=== PATIENT | male | born 1995 | race Caucasian/White ===

== ENCOUNTER 2020-12-21 18:04 | Emergency (ER) | payer MEDICAID, OTHER ==
[~2020-12-21] VITALS: Ht 180.3 cm; Wt 138.6 kg
--- OUTSIDE RECORDS SUMMARY | 2020-12-21 20:02 | CCD ---
Author Author [facility] Organization [facility] Address Unknown Phone Unavailable Support Name Relationship Address Phone [employer] [place] [address] ENOCH BAH Next Of Kin Unknown [employer] MARKET Next Of Kin [address] [place] [address] DERIAN [place] [address] Edgar OVIEDO Next Of [address] [place] [address] - Re-disclosure Warning The records that you are about to access may contain information from federally-assisted alcohol or drug abuse programs. If such information is present, then the following federally mandated warning applies: This information has been disclosed to you from records protected by federal confidentiality rules (42 CFR part 2). The federal rules prohibit you from making any further disclosure of this information unless further disclosure is expressly permitted by the written consent of the person to whom it pertains or as otherwise permitted by 42 CFR part 2. A general authorization for the release of medical or other information is NOT sufficient for this purpose. The Federal rules restrict any use of the information to criminally investigate or prosecute any alcohol or drug abuse patient.The records that you are about to access may contain highly sensitive health information, the redisclosure of which is protected by Article 27-F of the [facility] Public Health law. If you continue you may have access to information: Regarding HIV / AIDS; Provided by facilities licensed or operated by the [facility] Office of Mental Health; or Provided by the [facility] Office for People With Developmental Disabilities. If such information is present, then the following [facility] mandated warning applies: This information has been disclosed to you from confidential records which are protected by state law. State law prohibits you from making any further disclosure of this information without the specific written consent of the person to whom it pertains, or as otherwise permitted by law. Any unauthorized further disclosure in violation of state law may result in a fine or assisted sentence or both. A general authorization for the release of medical or other information is NOT sufficient authorization for further disc losure. Insurance Providers Payer name Policy type / Coverage type Policy ID Covered democrat ID Covered democrat's relationship to stanford Policy Stanford Plan Information NANDO [id number] SP [id number] EMEDMT [id number] MEDICA[place] [id number] [facility] [id number]
[2020-12-21 20:31] VITALS: BP 139/97
[2020-12-22] MEDS ORDERED: LEXA1TAB PO (11:22)
[2020-12-22] MEDS ORDERED: PT COMMENT (11:30)
== END 2020-12-21 20:36 | disposition home or self-care (01) ==
LOC: M ED 18:04
DX: Z04.6 Encounter for general psychiatric examination, requested by authority (principal); F31.9 Bipolar disorder, unspecified; Z79.899 Other long term (current) drug therapy

== ENCOUNTER 2020-12-22 10:50 | Inpatient (IN) | payer OTHER ==
[~2020-12-22] VITALS: Ht 185.4 cm; Wt 133.4 kg
--- OUTSIDE RECORDS SUMMARY | 2020-12-22 11:03 | CCD ---
Author Author [facility] Organization [facility] Address Unknown Phone Unavailable Support Name Relationship Address Phone [employer] [place] [address] ENOCH BAH Next Of Kin Unknown [employer] MARKET Next Of Kin [address] [place] [address] DERIAN J[place] [address] Edgar OVIEDO Next Of Kin [address] [place] [address] - Re-disclosure Warning The records that you [...] is protected by Article 27-F of the [facility] Public Health law. If you continue you may have access to information: Regarding HIV / AIDS; Provided by facilities licensed or operated by the [facility] Office of Mental Health; or Provided by the [facility] Office for People With Developmental Disabilities. If such information is present, then the following [facility] mandated warning applies: This information has been [...] law may result in a fine or fdc sentence or both. A general authorization for the release of medical or other information is NOT sufficient authorization for further disc losure. Insurance Providers Payer name Policy type / Coverage type Policy ID Covered alliance party ID Covered alliance party's relationship to stanford Policy Stanford Plan Information NANDO [id number] 200 [facility] [id number] EMEDMI [id number] [place] [id number] [facility] [id number]
[2020-12-22] MEDS ORDERED: LORazepam 2 MG TAB PO STA (11:13)
[2020-12-22 11:19] LABS: HEMATOCRIT 43.2 % (42.0-52.0); MEAN CORPUSCULAR HGB CONC 32.4 g/dl (32.0-36.5); MEAN CORPUSCULAR VOLUME 77.3 fl (80.0-96.0); PLATELET COUNT, AUTOMATED 275 10^3/uL (150-450); RED BLOOD COUNT 5.59 10^6/uL (4.30-6.10)
[2020-12-22] MEDS ORDERED: LEXA1TAB PO (11:22)
[2020-12-22] MEDS ORDERED: PT COMMENT (11:30)
[2020-12-22 11:58] LABS: ACETAMINOPHEN LEVEL < 2.0 UG/ML (10.0-30.0); ALBUMIN 4.8 GM/DL (3.2-5.2); ALT/SGPT 37 U/L (12-78); BILIRUBIN,DIRECT 0.1 MG/DL (0.0-0.2); BILIRUBIN,TOTAL 0.5 MG/DL (0.2-1.0); BLOOD UREA NITROGEN 23 MG/DL (7-18); CALCIUM LEVEL 9.9 MG/DL (8.5-10.1); CARBON DIOXIDE LEVEL 22 MEQ/L (21-32); CHLORIDE LEVEL 105 MEQ/L (98-107); CREATININE FOR GFR 0.85 MG/DL (0.70-1.30); ETHYL ALCOHOL (ETHANOL) < 0.003 % (0.000-0.010); GLOMERULAR FILTRATION RATE > 60.0 (>60); GLUCOSE, FASTING 135 MG/DL (70-100); POTASSIUM SERUM 3.4 MEQ/L (3.5-5.1); SALICYLATE LEVEL < 1.7 MG/DL (5.0-30.0); SODIUM LEVEL 139 MEQ/L (136-145); THYROID STIMULATING HORMONE 0.516 uIU/ML (0.358-3.740)
--- OUTSIDE RECORDS SUMMARY | 2020-12-22 12:09 | CCD ---
Author Author [facility] Organization [facility] Address Unknown Phone Unavailable Support Name Relationship Address Phone [employer] Next Of Kin [address] [place], [place] [id number] ENOCH BAH Next Of Kin Unknown [employer]ET Next Of Kin [address] [place] [address] DERIAN JENSEN [place] [address] Edgar OVIEDO Next Of Kin [address] [place] [address] - Re-disclosure Warning The records that you [...] is protected by Article 27-F of the [facility] Public Health law. If you continue you may have access to information: Regarding HIV / AIDS; Provided by facilities licensed or operated by the [facility] Office of Mental Health; or Provided by the [facility] Office for People With Developmental Disabilities. If such information is present, then the following [facility] mandated warning applies: This information has [...] law may result in a fine or fpc sentence or both. A general authorization for the release of medical or other information is NOT sufficient authorization for further disc losure. Insurance Providers Payer name Policy type / Coverage type Policy ID Covered libertarian ID Covered libertarian's relationship to stanford Policy Stanford Plan Information [facility] [id number] 200 [facility] [id number] EMEDMI [id number] [place] - [place] [id number] [facility] [id number]
[2020-12-22 13:59] LABS: AMPHETAMINES LEVEL URINE NEGATIVE (NEGATIVE); BARBITURATES URINE NEGATIVE (NEGATIVE); BENZODIAZEPINES URINE NEGATIVE (NEGATIVE); CANNABINOIDS URINE POSITIVE (NEGATIVE); COCAINE METABOLITE URINE NEGATIVE (NEGATIVE); METHADONE URINE NEGATIVE (NEGATIVE); OPIATES URINE NEGATIVE (NEGATIVE); PHENCYCLIDINE URINE NEGATIVE (NEGATIVE)
[2020-12-22 14:13] LABS: RSV AMPLIFICATION NEGATIVE (NEGATIVE)
[2020-12-22] MEDS ORDERED: MAALOX 30 ML SUSP *UDC PO PRN (16:15)
[2020-12-22] MEDS ORDERED: MOM 30ML SUSPENSION UDC PO PRN (16:15)
[2020-12-22] MEDS ORDERED: ACETAMINOPHEN TAB 650MG DOSE (2X325MG) PO PRN (16:15)
--- OUTSIDE RECORDS SUMMARY | 2020-12-22 16:51 | CCD ---
Author Author [facility] Organization [facility] Address Unknown Phone Unavailable Support Name Relationship Address Phone [employer] Next Of Kin [address] [place], [place] [phone] ENOCH BAH Next Of Kin Unknown [employer] MARKET Next Of Kin [address] [place] [address] DERIAN JENS[place] [address] Edgar OVIEDO Next Of Kin [address] [place] [address] - Re-disclosure Warning The records that you [...] is protected by Article 27-F of the [facility] Public Health law. If you continue you may have access to information: Regarding HIV / AIDS; Provided by facilities licensed or operated by the [facility] Office of Mental Health; or Provided by the [facility] Office for People With Developmental Disabilities. If such information is present, then the following [facility] mandated warning applies: This information has [...] law may result in a fine or [place] [facility] sentence or both. A general authorization for the release of medical or other information is NOT sufficient authorization for further disc losure. Insurance Providers Payer name Policy type / Coverage type Policy ID Covered libertarian ID Covered libertarian's relationship to stanford Policy Stanford Plan Information [facility] [id number] 200 [facility] [id number] EMEDGA [id number] [place] - [place] [id number] [facility] [id number]
[2020-12-22] MEDS: DIVALPROEX 250 MG TAB PO SCH ×2 (17:44→20:36)
[2020-12-22] MEDS: OLANZapine ORAL DISINTEGRATING TAB 5MG PO PRN (20:37)
[2020-12-22] MEDS ORDERED: diphenhydrAMINE 50MG CAP PO ONE (20:45)
[2020-12-22] MEDS ORDERED: LORazepam 2 MG TAB PO ONE (20:45)
[2020-12-22] MEDS ORDERED: PALIPERIDONE 3 MG ER TAB (INVEGA) PO SCH (21:00)
[2020-12-22] MEDS ORDERED: HALOPERIDOL 5MG/ML VIAL (J1630 PER 1) IM ONE (21:45)
[2020-12-22] MEDS ORDERED: diphenhydrAMINE 50MG/ML VIAL (J1200) IM ONE (21:45)
[2020-12-23] MEDS: DIVALPROEX 250 MG TAB PO SCH ×3 (09:55→21:26)
[2020-12-23] MEDS: OLANZapine 10 MG TAB PO SCH ×2 (09:55→21:26)
--- NOTE | 2020-12-23 13:42 | HPEPDOC ---
General Date of Admission Dec 22, 2020 at 16:15 Date of Service: Dec 23, 2020 Chief Complaint The patient is a 24-year-old male admitted with a reason for visit of Unspecified Psychotic Disorder. Source: Patient Exam Limitations: No limitations History of Present Illness Patient is 24 years old male with past history of bipolar disorder, hypertension, obesity presented hospital with psychosis. Patient stated that yesterday he developed juarez and he decided to come to the hospital. Patient didn't want to provide any further details. Patient denies fever, chills, nausea, vomiting, diarrhea or dysuria Home Medications Scheduled Escitalopram Oxalate (Lexapro) 10 Mg Tablet, 15 MG PO DAILY, (Reported) Miscellaneous Medications [Pt Comment] , (Reported) MED REC OBTAINED VIA [facility] Allergies Coded Allergies: No Known Allergies (Verified Allergy, Unknown, 12/22/20) Past Medical History Medical History Hypertension, Bipolar disorder, obesity Social History * Smoker: Denies Alcohol: Denies Drugs: marijuana A-FIB/CHADSVASC A-FIB History Current/History of A-Fib/PAF?: No Current PO Anticoag Therapy: No Review of Systems Constitutional: Denies: Chills Eyes: Denies: Pain ENT: Denies: Head Aches Skin: Denies: Rash Pulmonary: Denies: Dyspnea Cardiovascular: Denies: Chest Pain Gastrointestinal: Denies: Nausea Genitourinary: Denies: Dysuria Hematologic: Denies: Bruising Endocrine: Denies: Polydipsia Musculoskeletal: Denies: Neck Pain Neurological: Denies: Weakness Psych: Reports: Anxiety Physical Examination General Exam: Positive: Alert Eye Exam: Positive: PERRLA ENT Exam: Positive: Atraumatic Neck Exam: Positive: Supple; Negative: JVD Chest Exam: Positive: Clear to auscultation Heart Exam: Positive: Rate Normal Telemetry: Positive: No significant arrhythmia Abdomen Exam: Positive: Normal bowel sounds Extremity Exam: Negative: Clubbing Skin Exam: Positive: Nl turgor and temperature Neuro Exam: Positive: Normal Gait Psych Exam: Positive: Oriented x 3 Vital Signs Vital Signs Date Time Temp Pulse Resp B/P (MAP) Pulse Ox O2 Delivery O2 Flow Rate FiO2 12/22/20 11:32 98.0 123 20 139/102 (114) 96 Room Air Assessment/Plan Patient is 24 years old male with past history of bipolar disorder, obesity presented hospital with psychosis. Patient stated that yesterday he developed juarez and he decided to come to the hospital. Patient denies fever, chills, nausea, vomiting, diarrhea or dysuria Problems (1) Psychosis Status: Acute Problem Text: defer treatment to psych team (2) Hypertension Status: Chronic Problem Text: Lisinopril 5 mg Plan / VTE VTE Prophylaxis Ordered?: No VTE Exclusion Mechanical Proph: Low Risk for VTE IVETT SAENZ DO Dec 23, 2020 13:42
--- NOTE | 2020-12-23 15:32 | MHHPEPDOC ---
General Date Of Admission: Dec 22, 2020 Legal Status: 9.39 Chief Complaint "My brother Modesto got cancer last spring and this increased stress and work stress and worked one month straight and became manic." History of Present Illness HISTORY OF THE PRESENT ILLNESS: Patient is a 24 -year-old single, employed domiciled , male, who presents to the ED with manic symptoms. Since mother called the wellness Center, reporting to them that her son was having a manic episode. She reports him to be paranoid and delusional. Patient had been making homicidal threats to 2 friends and asked another friend to help kill these 2 friends. He is also heard to make the statements that he would drive off a corey with his girlfriend in the car. Patient reports that he has had one other hospitalization at [facility] in May 2019. According to his mother this was a [facility]. That occurrence. Patient was psychotic and attempted to jump the river as a suicide attempt. With past week. Patient has been grandiose with delusions. He reported to be wanting to purchase a farm becomes to see all of several gas station. 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 He has been observed with high aspirations which are unattainable. His mother reports continued decompensation may stem from the lack of his mood stabilizer which was discontinued one month ago or excessive marijuana abuse On interview, patient is observed with hypomanic symptoms. He reports that his brother being diagnosed with cancer last spring, increased his stress and that recently he had worked 1 month straight with no days off in between. States that his precipitating factor was being yelled at, at work. This triggered a manic episode for him. He became delusional and paranoid, reporting that he was Carlos Kingsley and he was believing that he wishes needing to preach. He states that he was very grandiose and that his mother was yelling at him quite a lot. He reports that he has had no sleep for the past 48 hours and at times during these manic episodes. Her telling him that she can't stand him living with her depresses him. Psychiatric Review of Systems Sue (4 or more days of): irritable/elevated mood, expansive mood, grandiosity, decreased need for sleep, still with energy, talkativity, pressured, flight of ideas, distractibility, engages in risky behavior Psychosis: delusions, paranoia PTSD: denies Anxiety: denies Past Psychiatric History Previous Psychiatric Diagnosis: Bipolar . Previous Psychiatric Admissions: 1 [address] in May [address] [facility] or [facility]. Suicide Attempts: 1 suicide attempt by jumping into the river. Psychiatric Follow-up: . Psychiatric medications: . He was recently taken off Lamictal 2 months ago. Past Medical History Medical Problems Reports no chronic or acute medical issues at this time. One surgery in the past. He had a uvula resection. No known drug allergies Head Injury: No Seizures: No Hospitalizations: Yes Surgeries: Yes Family Medical/Psychiatric HX Medical Problems He reports that his family has diabetes Brother has heart murmur other brother. His brother has thymus carcinoma Sr. with bipolar Brother. Smokes cigarettes Mother tapes reports that every member of the family has attempted suicide, none completed Psychiatric Disorders: Yes Addiction: Yes Suicide Attemps/Completions: Yes Addiction History alcohol (occasional), other (8 mushrooms 2 weeks ago, regularly smokes cannabis) Social History Childhood: Grew up in [facility], with Mother and brother, states his childhood was good. 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 Social Support: Mother, Girlfriend, Friends Legal: None Marital: Single Mental Status Examination General Appearance: disheveled, appears stated age, hospital scubs/clothing Build: overweight Demeanor: average Eye Contact: average Activity: average Behavior: cooperative Speech: rapid, pressured Mood: hypomanic Affect: full Thought Process: logical/linear, flight of ideas Thought Content (Delusions): none reported Thought Content (Aggressive): none reported Perception (Hallucinations): none reported Perception (Other): none reported Cognition (Impairment of): none reported Cognition(Intelligence Est.): average Oriented: Awake, Alert, Oriented times three Insight: fair Judgment: Fair Diagnoses Bipolar 1 disorder Cannabis use disorder History of mushroom ingestion one month ago A-FIB/CHADSVASC A-FIB History Current/History of A-Fib/PAF?: No Current PO Anticoag Therapy: No Assessment Action is a 24-year-old single employed domiciled male. He was brought to [facility] after his mother was reporting that he was delusional, paranoid and homicidal. Patient has 1 other psychiatric admissions to [facility], or [facility] in May 2019. He was diagnosed bipolar at that time. He recently was discontinued off Lamictal and only taking Lexapro at this time. We will restart medications. He started on Depakote. Patient is agreeable to mood stabilizers in his good insight believes that he is with bipolar symptoms and wants and is motivated to improve. Appears to have good insight and states the Zyprexa Zydis helped a great deal. . Encouraged patient to receive a dose after his initial psychiatric interview as he was quite animated and increasingly more manic during the interview. He was calm and cooperative in. I feel that patient can be discontinued off one-to-one observation. Initial Treatment Plan 1. Patient was admitted on a [9.39] status. 2. Complete history was obtained. 3. With patients permission, family will be contacted and database will be expanded. 4. Patients medication regimen will be reviewed and changed accordingly. 5. Patient will be provided with protected environment. 6. Patient will be treated with individual, group, and milieu therapies. 7. Patient will receive supportive psych-education. 8. Discharge planning will commence immediately. 9. Outpatient follow-up treatment will be strongly recommended. 10. The initial treatment plan will focus initially on: * Depression. * Risk for homicidal * altered thoughts * substance use. ESTIMATED LENGTH OF STAY: 3-5 DAYS. TIME SPENT COUNSELING AND COORDINATING INITIAL CARE: 60 minutes. Vital Signs Vital Signs Date Time Temp Pulse Resp B/P (MAP) Pulse Ox O2 Delivery O2 Flow Rate FiO2 12/22/20 11:32 98.0 123 20 139/102 (114) 96 Room Air Medications Scheduled Escitalopram Oxalate (Lexapro) 10 Mg Tablet, 15 MG PO DAILY, (Reported) Miscellaneous Medications [Pt Comment] , (Reported) MED REC OBTAINED [facility]IA [facility] Allergies Coded Allergies: No Known Allergies (Verified Allergy, Unknown, 12/22/20) CHAPIN PEARSON NP Dec 23, 2020 15:32
[2020-12-23 19:15] VITALS: BP 136/80
[2020-12-24 06:37] VITALS: BP 164/72
[2020-12-24] MEDS: DIVALPROEX 250 MG TAB PO SCH ×3 (08:46→20:50)
[2020-12-24] MEDS: lisinopriL 5 MG TAB PO SCH (08:47)
[2020-12-24] MEDS: OLANZapine 10 MG TAB PO SCH ×2 (08:47→20:50)
[2020-12-24 18:33] VITALS: BP 164/100
[2020-12-25 06:35] VITALS: BP 140/72
[2020-12-25] MEDS: OLANZapine 10 MG TAB PO SCH ×2 (08:14→20:36)
[2020-12-25] MEDS: lisinopriL 5 MG TAB PO SCH (08:14)
[2020-12-25] MEDS: DIVALPROEX 250 MG TAB PO SCH ×3 (08:14→20:35)
[2020-12-25 17:02] VITALS: BP 145/98
[2020-12-25] MEDS: traZODone 50 MG TAB PO PRN (21:51)
[2020-12-25] MEDS: OLANZapine ORAL DISINTEGRATING TAB 5MG PO PRN (22:36)
[2020-12-26] MEDS: OLANZapine ORAL DISINTEGRATING TAB 5MG PO PRN (06:38)
[2020-12-26 06:57] VITALS: BP 162/98
[2020-12-26] MEDS: BENZTROPINE 0.5 MG TAB PO SCH ×2 (09:02→20:13)
[2020-12-26] MEDS: OLANZapine 10 MG TAB PO SCH ×2 (09:02→20:12)
[2020-12-26] MEDS: lisinopriL 5 MG TAB PO SCH (09:02)
[2020-12-26] MEDS: DIVALPROEX 500 MG TAB PO SCH ×2 (09:02→20:13)
--- NOTE | 2020-12-26 12:23 | MHIPNPDOC ---
[facility] Progress Note Progress Note DATE OF SERVICE: 12/26/20 HISTORY: Patient is a 24 -year-old single, employed domiciled , male, who presents to the ED with manic symptoms. Since mother called the wellness C enter, reporting to them that her son was having a manic episode. She reports him to be paranoid and delusional. Patient was also making homicidal threats to 2 friends and asked another friend to help kill these 2 other friends. He is also heard to make the statements that he would drive off a corey with his girlfriend in the car. VITAL SIGNS: See below. CURRENT MEDICATIONS: See below. MENTAL STATUS EXAMINATION: Patient is a 24 -year-old single, employed domiciled , male with one other psychiatric hospitalization, history of Bipolar disorder [facility] and [facility] and he was also making homicidal threats. Speech: Is mildly fast, normal tone and volume Language skills are Expansive Thought processes including: linear and goal oriented Thought content: denies suicidality, homicidality, denies anxiety. Reports depression after he was told he was not being discharged today. Abstract reasoning, and computation: fair Description of associations: none Description of abnormal or psychotic thoughts: none Judgment: fair to poor at times Insight: fair to poor at times Orientation: A + O x 4 Recent and remote memory: Intact Attention span and concentration: Good Language: Average, Normal Fund of knowledge: Average Mood: Labile Affect: Irritable, congruent to mood DIAGNOSES: Bipolar 1 Disorder, recent episode, manic Cannabis Use Disorder History of Mushroom ingestion one month ago ASSESSMENT: Patient found walking with another peer, agreeable to interview. He states "My weekend started rough but ended well. I had a lot of delusions in the beginning, but I am better, I got sleep." Patient states that he has a half-sister on the unit (Father's daughter) and he is relieved to have someone here that he knows. He reports that he did not grow up with this person and does not know her well. Patient is very animated in the interview. Reviewed with him the patient changes and he became very defensive when he was told he was not being discharged today. He became very irritable when I reviewed with him the circumstances that brought him to the hospital and the collateral information given to us regarding homicidal statements that he had made. "My mother is crazy, and she wants me in here." He said, "I want a second opinion on that, I did not make any statements to harm my friend." Reviewed with the patient that setting self harm and harm to others statements that he was not doing well in the community and needed to be stabilized. He reports that he is stable today, wants to be discharged today as he feels that the "nurses are not appreciated by the medical professions at all." He cannot clarify why this statement is imperative to the consideration of his discharge. Patient is observed to be still moderately manic and having impaired insight and judgment in the interview. He denies depression and suicidal ideation. Denies AH/VH but is observed and quite labile in the 1:1 interview, was very agitated in one minute and crying the next moment. He became mildly argumentative when his discharge was not today. MANAGEMENT PLAN: Continue all medications, Depakote was increased to 500 mg BID, will discharge patient when he is stable. TIME SPENT: 25 minutes. Vital Signs Vital Signs Date Time Temp Pulse Resp B/P (MAP) Pulse Ox O2 Delivery O2 Flow Rate FiO2 12/26/20 11:00 Room Air 12/26/20 09:02 160/98 12/26/20 06:57 97.0 74 18 99 Current Medications Current Medications Medications (Trade) Dose Ordered Sig/Ronda Route PRN Reason Start Time Stop Time Status Last Admin Dose Admin Acetaminophen (Tylenol Tab) 650 mg Q6HP PRN PO HEADACHE or DISCOMFORT 12/22/20 16:15 Al Hydrox/Mg Hydrox/Simethicone (Mylanta) 30 ml Q4HP PRN PO HEARTBURN/INDIGESTION 12/22/20 16:15 Benztropine Mesylate (Cogentin) 0.5 mg BID PO 12/26/20 09:00 12/26/20 09:02 Divalproex Sodium (Depakote) 250 mg TID PO 12/22/20 16:00 12/26/20 08:47 DC 12/25/20 20:35 Divalproex Sodium (Depakote) 500 mg BID PO 12/26/20 09:00 12/26/20 09:02 Home Med (Med Rec Complete!) ASDIRECTED XX 12/22/20 12:15 12/22/20 12:15 DC Lisinopril (Prinivil) 5 mg DAILY PO 12/24/20 09:00 12/26/20 09:02 Lorazepam (Ativan) 2 mg STAT STAT PO 12/22/20 11:13 12/22/20 11:15 DC 12/22/20 11:23 Magnesium Hydroxide (Milk Of Magnesia) 30 ml DAILYPRN PRN PO CONSTIPATION 12/22/20 16:15 Olanzapine (ZyPREXA ZYDIS) 5 mg Q6HP PRN PO ANXIETY/AGITATION 12/22/20 16:15 12/26/20 06:38 Olanzapine (ZyPREXA) 10 mg BID PO 12/23/20 09:00 12/26/20 09:02 Paliperidone (Invega) 3 mg QHS PO 12/22/20 21:00 12/22/20 20:53 DC 12/22/20 20:36 Trazodone HCl (Desyrel) 50 mg QHSP PRN PO INSOMNIA 12/22/20 16:15 12/25/20 21:51 Allergies Coded Allergies: No Known Allergies (Verified Allergy, Unknown, 12/22/20) CHAPIN PEARSON NP Dec 26, 2020 12:23
[2020-12-26 16:53] VITALS: BP 138/76
[2020-12-26] MEDS: traZODone 50 MG TAB PO PRN (21:43)
[2020-12-27] MEDS: OLANZapine ORAL DISINTEGRATING TAB 5MG PO PRN (02:51)
[2020-12-27] MEDS ORDERED: OLANZapine ORAL DISINTEGRATING TAB 5MG PO ONE (06:00)
[2020-12-27] MEDS ORDERED: traZODone 25MG PER 1/2 TABLET PO ONE (06:00)
[2020-12-27 06:44] VITALS: BP 148/92
[2020-12-27] MEDS: OLANZapine 10 MG TAB PO SCH ×2 (08:26→20:03)
[2020-12-27] MEDS: DIVALPROEX 500 MG TAB PO SCH ×2 (08:27→20:03)
[2020-12-27] MEDS: lisinopriL 5 MG TAB PO SCH (08:27)
[2020-12-27] MEDS: BENZTROPINE 0.5 MG TAB PO SCH ×2 (08:27→20:03)
--- NOTE | 2020-12-27 09:27 | MHIPN ---
[facility] PROGRESS NOTE DATE: 12/24/2020 VITAL SIGNS: Blood pressure 164/72, pulse 90, temperature 98.1. This is a video assessment, we are doing this because of the pandemic. CHIEF COMPLAINT: Says feels better. SUBJECTIVE: Seen for followup, this is in the presence of staff. Says feels better, and that he had a good night's sleep, says it is the best he has had in quite a while. Says feels very energetic. MENTAL STATUS EXAMINATION: Neat, cooperative, no agitation, no psychomotor retardation. Has overly productive speech, but generally coherent. Affect mildly expansive. Denies any thoughts of harming himself or anyone else. Cognition grossly intact. Judgment and insight remain compromised. ASSESSMENT: Bipolar type 1 disorder, current episode manic, this is with psychotic features. PLAN: Continue current care, observations. He is on olanzapine at 10 mg twice a day. I do not think that Lamictal needs to be resumed at this point, given the juarez. Will encourage him to participate in activities in the unit, as tolerated.
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
[2020-12-27 16:14] VITALS: BP 125/66
--- NOTE | 2020-12-27 17:08 | MHIPN ---
[facility] PROGRESS NOTE DATE: 12/25/2020 VITAL SIGNS: Blood pressure 140/72, temperature 97.5, pulse 90. CHIEF COMPLAINT: Says feels well. SUBJECTIVE: He is seen for followup, this is on video, in the presence of staff, we are doing this because of the pandemic. He says he feels very good, and that he slept well, has a lot of energy. Also says that one of the patients is his biological sister, he says they do not see each other regularly. MENTAL STATUS EXAMINATION: Neat, cooperative, no agitation, no psychomotor retardation, speech is somewhat overly productive, affect broad, no evidence of any thoughts of harming himself or anyone else, I could not detect any delusions at present, cognition grossly intact, judgment and insight are compromised. ASSESSMENT: Bipolar type 1 disorder, current episode manic. PLAN: Continue current care, observations, including the olanzapine at 10 mg twice a day, Depakote 250 mg three times a day. Encourage participation in activities in the unit. Further recommendations will be made depending on the clinical picture.
[2020-12-27] MEDS: traZODone 50 MG TAB PO PRN (20:03)
[2020-12-28] MEDS: OLANZapine ORAL DISINTEGRATING TAB 5MG PO PRN ×2 (03:26→10:08)
[2020-12-28 06:16] VITALS: BP 168/86
[2020-12-28] MEDS: lisinopriL 5 MG TAB PO SCH (08:31)
[2020-12-28] MEDS: BENZTROPINE 0.5 MG TAB PO SCH ×2 (08:31→20:12)
[2020-12-28] MEDS: DIVALPROEX 500 MG TAB PO SCH ×2 (08:31→20:13)
[2020-12-28] MEDS: OLANZapine 10 MG TAB PO SCH ×2 (08:31→20:12)
[2020-12-28] MEDS ORDERED: TRAZ-252 PO (14:02)
[2020-12-28] MEDS ORDERED: BENZ0.5T23 PO (14:02)
[2020-12-28] MEDS ORDERED: LISI-898 PO (14:02)
[2020-12-28] MEDS ORDERED: OLAN10TA2 PO (14:02)
[2020-12-28] MEDS ORDERED: DEPA1TAB3 PO (14:02)
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
[2020-12-28 16:05] VITALS: BP 128/72
[2020-12-28] MEDS: traZODone 50 MG TAB PO PRN (22:39)
[2020-12-29 05:58] VITALS: BP 148/78
[2020-12-29] MEDS: BENZTROPINE 0.5 MG TAB PO SCH (08:17)
[2020-12-29 08:18] VITALS: BP 148/78
[2020-12-29] MEDS: DIVALPROEX 500 MG TAB PO SCH (08:18)
[2020-12-29] MEDS: lisinopriL 5 MG TAB PO SCH (08:18)
[2020-12-29] MEDS: OLANZapine 10 MG TAB PO SCH (08:18)
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
== END 2020-12-29 12:20 | disposition home or self-care (01) | DRG 753 ==
LOC: M ED 10:50 → M ED INP 16:15 → M PSY 17:22
PROVIDERS: ADMIT Psychiatry & Neurology Psychiatry; ATTEND Psychiatry & Neurology Psychiatry
DX: F31.2 Bipolar disorder, current episode manic severe with psychotic features (principal); F12.10 Cannabis abuse, uncomplicated; I10 Essential (primary) hypertension; E66.9 Obesity, unspecified; Z81.8 Family history of other mental and behavioral disorders; Z56.3 Stressful work schedule; Z91.5 Personal history of self-harm; Z63.79 Other stressful life events affecting family and household; Z79.899 Other long term (current) drug therapy

== ENCOUNTER 2023-05-27 14:16 | Emergency (ER) | payer OTHER ==
[~2023-05-27] VITALS: Ht 180.3 cm; Wt 133.4 kg
[~2023-05-27 14:16] MED LIST: BENZ0.5T2 PO; DEPA1TAB3 PO; LEXA1TAB PO; LISI5TAB11 PO; OLAN1TAB20 PO; PT COMMENT; TRAZ-252 PO
[2023-05-27] MEDS ORDERED: OLANZapine ORAL DISINTEGRATING TAB 5MG PO ONE (14:20)
[2023-05-27 15:14] LABS: HEMATOCRIT 42.9 % (42.0-52.0); HEMOGLOBIN 13.8 g/dl (13.5-17.5); MEAN CORPUSCULAR HEMOGLOBIN 25.2 pg (27.0-33.0); MEAN CORPUSCULAR HGB CONC 32.2 g/dl (32.0-36.5); MEAN CORPUSCULAR VOLUME 78.3 fl (80.0-96.0); PLATELET COUNT, AUTOMATED 325 10^3/uL (150-450); RED BLOOD COUNT 5.48 10^6/uL (4.30-6.10); WHITE BLOOD COUNT 10.2 10^3/uL (4.0-10.0)
[2023-05-27 15:40] LABS: ETHYL ALCOHOL (ETHANOL) 0.007 % (0.000-0.010)
[2023-05-27 15:41] LABS: ACETAMINOPHEN LEVEL < 2.0 UG/ML (10.0-20.0)
[2023-05-27 15:42] LABS: ALBUMIN 4.9 G/DL (3.2-5.2); ALKALINE PHOSPHATASE 88 U/L (46-116); ALT/SGPT 31 U/L (7.0-40); AST/SGOT 22 U/L (<34); BILIRUBIN,DIRECT 0.3 MG/DL (<0.4); BILIRUBIN,TOTAL 0.9 MG/DL (0.3-1.2); BLOOD UREA NITROGEN 21 MG/DL (9-23); CALCIUM LEVEL 10.6 MG/DL (8.5-10.1); CARBON DIOXIDE LEVEL 24 MMOL/L (20-31); CHLORIDE LEVEL 101 MMOL/L (98-107); CREATININE FOR GFR 0.85 MG/DL (0.70-1.30); GLOMERULAR FILTRATION RATE > 60.0 (>60); GLUCOSE, FASTING 216 MG/DL (60-100); POTASSIUM SERUM 3.5 MMOL/L (3.5-5.1); SALICYLATE LEVEL < 3.0 MG/DL (<30); SODIUM LEVEL 139 MMOL/L (136-145); TOTAL PROTEIN 7.9 G/DL (5.7-8.2)
[2023-05-27 15:43] LABS: THYROID STIMULATING HORMONE 1.874 uIU/ML (0.55-4.78)
[2023-05-27 17:46] LABS: AMPHETAMINES LEVEL URINE NEGATIVE (NEGATIVE); BARBITURATES URINE NEGATIVE (NEGATIVE); BENZODIAZEPINES URINE NEGATIVE (NEGATIVE); COCAINE METABOLITE URINE NEGATIVE (NEGATIVE); METHADONE URINE NEGATIVE (NEGATIVE); OPIATES URINE NEGATIVE (NEGATIVE); PHENCYCLIDINE URINE NEGATIVE (NEGATIVE)
[2023-05-27 17:51] LABS: CANNABINOIDS URINE POSITIVE (NEGATIVE)
[2023-05-27 18:23] LABS: HEMOGLOBIN A1c 6.2 % (4.0-6.0)
[2023-05-28 06:25] VITALS: BP 168/91; TEMP 97.8; O2SAT 99
== END 2023-05-28 06:29 ==
LOC: M ED 14:16
DX: F31.2 Bipolar disorder, current episode manic severe with psychotic features (principal); I10 Essential (primary) hypertension; E66.9 Obesity, unspecified; F12.10 Cannabis abuse, uncomplicated; Z79.811 Long term (current) use of aromatase inhibitors; Z79.899 Other long term (current) drug therapy

== ENCOUNTER 2024-05-03 14:32 | Inpatient (IN) | payer OTHER ==
[~2024-05-03] VITALS: Ht 175.3 cm; Wt 130.7 kg
[2024-05-03 15:52] LABS: HEMATOCRIT 39.4 % (42.0-52.0); MEAN CORPUSCULAR HEMOGLOBIN 25.7 pg (27.0-33.0); PLATELET COUNT, AUTOMATED 258 10^3/uL (150-450); RED BLOOD COUNT 5.05 10^6/uL (4.30-6.10); WHITE BLOOD COUNT 8.1 10^3/uL (4.0-10.0)
[2024-05-03 16:15] LABS: ETHYL ALCOHOL (ETHANOL) < 0.003 % (0.000-0.010)
[2024-05-03 16:16] LABS: SALICYLATE LEVEL < 3.0 MG/DL (<30)
[2024-05-03 16:17] LABS: ALBUMIN 4.4 G/DL (3.2-5.2); ALKALINE PHOSPHATASE 78 U/L (46-116); ALT/SGPT 81 U/L (7.0-40); AST/SGOT 30 U/L (<34); BILIRUBIN,DIRECT 0.1 MG/DL (<0.4); BILIRUBIN,TOTAL 0.5 MG/DL (0.3-1.2); BLOOD UREA NITROGEN 16 MG/DL (9-23); CARBON DIOXIDE LEVEL 22 MMOL/L (20-31); CHLORIDE LEVEL 109 MMOL/L (98-107); CREATININE FOR GFR 0.77 MG/DL (0.70-1.30); GLOMERULAR FILTRATION RATE > 60.0 (>60); GLUCOSE, FASTING 146 MG/DL (60-100); POTASSIUM SERUM 3.7 MMOL/L (3.5-5.1); SODIUM LEVEL 140 MMOL/L (136-145); TOTAL PROTEIN 7.2 G/DL (5.7-8.2)
[2024-05-03 16:20] LABS: THYROID STIMULATING HORMONE 1.018 uIU/ML (0.55-4.78)
[2024-05-03 16:26] LABS: AMPHETAMINES LEVEL URINE NEGATIVE (NEGATIVE)
[2024-05-03 16:27] LABS: BARBITURATES URINE NEGATIVE (NEGATIVE); BENZODIAZEPINES URINE NEGATIVE (NEGATIVE); COCAINE METABOLITE URINE NEGATIVE (NEGATIVE); METHADONE URINE NEGATIVE (NEGATIVE); OPIATES URINE NEGATIVE (NEGATIVE); PHENCYCLIDINE URINE NEGATIVE (NEGATIVE)
[2024-05-03 16:34] LABS: CANNABINOIDS URINE POSITIVE (NEGATIVE)
[2024-05-03] MEDS: OLANZapine ORAL DISINTEGRATING TAB 5MG PO ONE (17:19)
[2024-05-03] MEDS ORDERED: ZOLP10TA2 PO (18:21)
[2024-05-03] MEDS ORDERED: RISP-106 PO (18:21)
[2024-05-03] MEDS ORDERED: BENZ1TAB5 PO (18:21)
[2024-05-03] MEDS ORDERED: HOME MED LIST COMPLETE! XX SCH (18:25)
[2024-05-03] MEDS: traZODone 50 MG TAB PO ONE (21:19)
[2024-05-04] MEDS: diphenhydrAMINE 25MG CAP PO ONE (02:19)
[2024-05-04] MEDS: risperiDONE 2 MG TAB PO SCH (10:50)
[2024-05-04] MEDS: BENZTROPINE 1 MG TAB PO SCH (10:50)
[2024-05-04] MEDS: LORazepam 2 MG TAB PO STA (13:03)
[2024-05-04] MEDS: zolPIDEM TARTRATE 5 MG TAB PO SCH (22:01)
[2024-05-05] MEDS: MOM 30ML SUSPENSION UDC PO ONE (02:35)
[2024-05-05] MEDS: LORazepam 2 MG TAB PO STA (06:28)
[2024-05-05] MEDS: FOLIC ACID 1MG TAB PO SCH (09:00)
[2024-05-05] MEDS: THIAMINE 100 MG TAB PO SCH (09:00)
[2024-05-05] MEDS: MULTIVITAMINS/MINERALS THERAP 1 TAB PO SCH (09:00)
[2024-05-05] MEDS: NICOTINE 14 MG/24 HR TRANSDERMAL TD SCH (09:00)
[2024-05-05] MEDS ORDERED: ACETAMINOPHEN TAB 650MG DOSE (2X325MG) PO PRN (12:45)
[2024-05-05] MEDS ORDERED: MAALOX 30 ML SUSP *UDC PO PRN (12:45)
[2024-05-05] MEDS ORDERED: LORazepam 2 MG TAB PO PRN (12:45)
[2024-05-05 14:05] VITALS: BP 154/95; TEMP 97.6
[2024-05-05] MEDS ORDERED: HOME MED LIST COMPLETE! XX SCH (14:15)
[2024-05-05] MEDS: MOM 30ML SUSPENSION UDC PO PRN (20:07)
[2024-05-05] MEDS: traZODone 50 MG TAB PO PRN (20:07)
[2024-05-06] MEDS: diphenhydrAMINE 25MG CAP PO PRN (00:55)
[2024-05-06] MEDS: OLANZapine 5 MG TAB PO PRN (02:39)
[2024-05-06 06:00] VITALS: BP 138/91
[2024-05-06 06:29] VITALS: BP 138/91; TEMP 97; O2SAT 98
[2024-05-06] MEDS: OLANZapine 5 MG TAB PO SCH (09:56)
[2024-05-06] MEDS: DIVALPROEX 250MG *ER* TAB PO SCH (09:56)
[2024-05-06] MEDS ORDERED: amLODIPine 5 MG TAB PO SCH (12:05)
[2024-05-06 12:46] VITALS: BP 140/90
[2024-05-06] MEDS: lisinopriL 5 MG TAB PO SCH (12:48)
[2024-05-06 16:00] VITALS: BP 140/90
[2024-05-06 17:28] VITALS: BP 152/90; TEMP 97.6; O2SAT 97
[2024-05-06] MEDS ORDERED: risperiDONE 3 MG TAB PO SCH (21:00)
[2024-05-07 06:34] VITALS: BP 147/70; TEMP 97.3; O2SAT 98
[2024-05-07] MEDS: OLANZapine 2.5MG TABLET PO SCH (09:00)
[2024-05-07 10:17] LABS: CHOLESTEROL RISK RATIO 3.94 (<5); HDL CHOLESTEROL 34.2 MG/DL (>40); LDL CHOLESTEROL 73.6 MG/DL (<100); NON-HDL-C 100.8 MG/DL
[2024-05-07] MEDS: DIVALPROEX 500MG *ER* TAB PO SCH (11:36)
[2024-05-07 14:00] VITALS: BP 135/85
[2024-05-07 17:33] VITALS: BP 135/85; TEMP 97.1; O2SAT 96
[2024-05-08 06:12] VITALS: BP 133/63; TEMP 97.5
[2024-05-08 14:00] VITALS: BP 142/78
[2024-05-08 15:37] VITALS: BP 142/78; TEMP 97.5; O2SAT 96
[2024-05-09 06:05] VITALS: BP 137/82; TEMP 96.5
[2024-05-09 15:36] VITALS: BP 140/80; TEMP 97.7; O2SAT 95
[2024-05-10 06:02] VITALS: BP 135/87; TEMP 96.8; O2SAT 100
[2024-05-10 16:13] VITALS: BP 131/69; TEMP 97.4; O2SAT 97
[2024-05-11 05:51] VITALS: BP 152/88; TEMP 97.9
[2024-05-11 08:00] VITALS: BP 131/81
[2024-05-11 18:35] VITALS: BP 144/89; TEMP 97.3
[2024-05-11] MEDS: OLANZapine 10 MG TAB PO SCH (20:17)
[2024-05-12 06:20] VITALS: BP 130/80; TEMP 97; O2SAT 98
[2024-05-12 08:26] VITALS: BP 140/86
[2024-05-12 16:31] VITALS: BP 148/86; TEMP 97.5
[2024-05-13 06:21] VITALS: BP 130/71; TEMP 97.1
[2024-05-13 17:29] VITALS: BP 149/70; TEMP 97.4
[2024-05-14 06:26] VITALS: BP 156/80; TEMP 97
[2024-05-14] MEDS: ESCITALOPRAM OXALATE 10 MG TAB (LEXAPRO) PO SCH (09:59)
[2024-05-14 15:34] VITALS: BP 123/58; TEMP 97; O2SAT 98
[2024-05-14] MEDS: OLANZapine 5 MG TAB PO SCH (20:08)
[2024-05-15 06:06] VITALS: BP 130/74; TEMP 97; O2SAT 100
[2024-05-15] MEDS: IBUPROFEN 400MG TAB PO PRN (15:07)
[2024-05-15 15:41] VITALS: BP 133/73; TEMP 97.6; O2SAT 98
[2024-05-16 06:11] VITALS: BP 133/86; TEMP 97.2; O2SAT 99
[2024-05-16 16:27] VITALS: BP 117/67; TEMP 97.6; O2SAT 97
[2024-05-17 05:52] VITALS: BP 123/58; TEMP 97.6; O2SAT 99
[2024-05-17] MEDS: OFLOXACIN 0.3 % (OCUFLOX) OPTH SOL 5ML AD SCH (13:27)
[2024-05-17 15:35] VITALS: BP 121/58; TEMP 97.9; O2SAT 98
[2024-05-18 06:49] VITALS: BP 121/83; TEMP 96.8; O2SAT 99
[2024-05-18 18:42] VITALS: BP 138/82; TEMP 97.4
[2024-05-19 06:24] VITALS: BP 140/90; TEMP 97.5; O2SAT 100
[2024-05-19 08:16] VITALS: BP 140/90
[2024-05-19] MEDS ORDERED: DEPA500T2 PO (09:43)
[2024-05-19] MEDS ORDERED: OCUF0.25 AD (09:43)
[2024-05-19] MEDS ORDERED: LEXA1TAB PO (09:43)
[2024-05-19] MEDS ORDERED: NICO14PA TD (09:43)
[2024-05-19] MEDS ORDERED: LISI5TAB11 PO (09:43)
[2024-05-19] MEDS ORDERED: OLAN1TAB16 PO (09:43)
[2024-05-19] MEDS ORDERED: TRAZ-252 PO (09:43)
== END 2024-05-19 12:27 | disposition home or self-care (01) | DRG 753 ==
LOC: M ED 14:32 → M ED INP 05-05 12:41 → M PSY 05-05 14:44
PROVIDERS: ADMIT Student in an Organized Health Care Education/Training Program; ATTEND Student in an Organized Health Care Education/Training Program
DX: F31.5 Bipolar disorder, current episode depressed, severe, with psychotic features (principal); F25.9 Schizoaffective disorder, unspecified; I10 Essential (primary) hypertension; F12.90 Cannabis use, unspecified, uncomplicated; Z79.899 Other long term (current) drug therapy; E66.9 Obesity, unspecified; F17.200 Nicotine dependence, unspecified, uncomplicated; G47.00 Insomnia, unspecified